=== PATIENT | female | born 1975 | race Caucasian/White ===

== ENCOUNTER 2020-04-26 08:00 | Emergency (ER) | payer OTHER ==
[~2020-04-26] VITALS: Ht 152.4 cm; Wt 90.3 kg
[2020-04-26 08:08] VITALS: Ht 152.4 cm; Wt 90.3 kg
[2020-04-26 10:11] LABS: BASOPHIL % 0.3 % (0-2); PLATELET COUNT 360 x10^3mcL (130-400); RED CELL DISTRIBUTION WIDTH 13.9 % (11.5-14.5)
[2020-04-26 10:23] LABS: CALCIUM 8.7 mg/dL (8.5-10.1); CARBON DIOXIDE 30.2 mmol/L (21-32); CHLORIDE SERUM 100 mmol/L (98-107); CREATININE SERUM 0.6 mg/dL (0.6-1.0); GFR1 > 60 mL/min; GLUCOSE SERUM 96 mg/dL (74-106); POTASSIUM SERUM 3.7 mmol/L (3.5-5.1); SODIUM SERUM 138 mmol/L (136-145)
[2020-04-26 10:28] LABS: ALBUMIN 3.8 g/dL (3.4-5.0); ALKALINE PHOSPHATASE 67 U/L (46-116); ALT/SGPT 22 U/L (14-59); AST/SGOT 13 U/L (15-37); BILIRUBIN TOTAL 0.51 mg/dL (0.20-1.00)
[2020-04-26 10:41] LABS: TOTAL PROTEIN, SERUM 8.4 g/dL (6.4-8.2)
[2020-04-26 11:58] VITALS: BP 108/57
== END 2020-04-26 11:58 | disposition home or self-care (01) ==
LOC: ED 08:00
PROVIDERS: Emergency Medicine
DX: R20.2 Paresthesia of skin (principal); R53.1 Weakness
CPT/HCPCS: 36415

== ENCOUNTER 2020-05-13 15:57 | Emergency (ER) | payer OTHER ==
[~2020-05-13] VITALS: Ht 170.2 cm; Wt 81.6 kg
[2020-05-13 16:22] VITALS: Ht 170.2 cm; Wt 81.6 kg
[2020-05-13 20:49] VITALS: BP 121/67
[2020-05-13 21:14] LABS: BASOPHIL % 0.4 % (0-2); PLATELET COUNT 341 x10^3mcL (130-400); RED CELL DISTRIBUTION WIDTH 14.7 % (11.5-14.5)
[2020-05-13 21:45] LABS: microscopic required? YES; urine erythrocyte 3+ (NEGATIVE)
[2020-05-13 21:46] LABS: CALCIUM 8.1 mg/dL (8.5-10.1); CARBON DIOXIDE 26.3 mmol/L (21-32); CHLORIDE SERUM 105 mmol/L (98-107); CREATININE SERUM 0.7 mg/dL (0.6-1.0); GFR1 > 60 mL/min; GLUCOSE SERUM 104 mg/dL (74-106); POTASSIUM SERUM 3.5 mmol/L (3.5-5.1); SODIUM SERUM 143 mmol/L (136-145)
[2020-05-13 21:52] LABS: ALBUMIN 3.5 g/dL (3.4-5.0); ALKALINE PHOSPHATASE 66 U/L (46-116); ALT/SGPT 21 U/L (14-59); AST/SGOT 13 U/L (15-37); BILIRUBIN TOTAL 0.23 mg/dL (0.20-1.00)
[2020-05-13 22:06] LABS: AMPHETAMINE QUAL UR NONE DETECTED (See below)
== END 2020-05-13 22:57 | disposition left against medical advice (07) ==
LOC: ED 15:57
PROVIDERS: Emergency Medicine
DX: G93.41 Metabolic encephalopathy (principal); F10.129 Alcohol abuse with intoxication, unspecified; E66.9 Obesity, unspecified; R45.1 Restlessness and agitation
CPT/HCPCS: G0480; J1630; J2060; Q0092; U0003-CS